=== PATIENT | female | born 1995 | race Caucasian/White ===

== ENCOUNTER 2016-07-19 12:24 | Emergency (ER) | payer SELFPAY ==
[~2016-07-19] VITALS: Ht 170.2 cm; Wt 61.4 kg
[~2016-07-19 12:24] MED LIST: Z.0.BCPILL PO
[2016-07-19 12:27] VITALS: BP 122/75; PULSE 80; RESP 15; TEMP 97.9; O2SAT 95
== END 2016-07-19 14:00 | disposition left against medical advice (07) ==
LOC: NED 12:24
DX: J02.9 Acute pharyngitis, unspecified (principal)
CPT/HCPCS: 99281